=== PATIENT | female | born 1950 | race Caucasian/White ===

== ENCOUNTER 2019-01-07 10:10 | Observation (INO) | payer OTHER ==
[2019-01-07 10:23] VITALS: BMI 26.6
[2019-01-07 11:34] LABS: EOS % 0.7 % (0-4.5); HEMATOCRIT 40.1 % (32.4-45.2); HEMOGLOBIN 13.8 GM/dL (10.7-15.3); LYMPH % 31.4 % (8-40); MCH 33.2 pg (25.7-33.7); MCHC 34.4 g/dl (32.0-36.0); MEAN CELL VOLUME 96.6 fl (80-96); MEAN PLT VOLUME 6.8 fl (7.5-11.1); NEUT % 58.9 % (42.8-82.8); PLATELET COUNT 284 K/MM3 (134-434); RBC 4.15 M/mm3 (3.60-5.2); RDW 13.4 % (11.6-15.6); WHITE BLOOD COUNT 5.5 K/mm3 (4.0-10.0)
--- NOTE | 2019-01-07 11:43 | PDOC ---
History of Present Illness - General Chief Complaint: Syncope/Near Syncope Stated Complaint: SYNCOPE Time Seen by Provider: 01/07/19 10:46 History Source: Patient, Family Exam Limitations: No Limitations - History of Present Illness Initial Comments: 01/07/19 11:31 The patient is a 68F with a PMH of HTN and HLD who presents to the ER with complaints of dizziness. The patient states that 1 month ago, she developed room -spinning dizziness associated with SOB, nausea, dipolopia, and b/l tinnitus. This "went away" and then came back 2 weeks ago, where it has been intermittent since then. She denies current sensation of spinning and denies syncope. She denies fever, chills, CP, numbness, tingling, weakness, changes in vision. Past History - Past Medical History Allergies/Adverse Reactions: Allergies Allergy/AdvReac Type Severity Reaction Status Date / Time No Known Drug Allergies Allergy Verified 01/07/19 10:23 Home Medications: Ambulatory Orders NK [No Known Home Medication] 01/07/19 Anemia: No Asthma: No Cancer: No (BLADDER CANCER-DENIES) Cardiac Disorders: No CVA: No COPD: No CHF: No Dementia: No Diabetes: No GI Disorders: No Disorders: Yes (PROLAPSED BLADDER-DENIES DROPPED BLADDER) HTN: No Hypercholesterolemia: No Liver Disease: No Seizures: No Thyroid Disease: No - Surgical History Abdominal Surgery: Yes (TL) Appendectomy: No Cardiac Surgery: No Cholecystectomy: No Lung Surgery: No Neurologic Surgery: No Orthopedic Surgery: No - Suicide/Smoking/Psychosocial Hx Smoking History: Never smoked Have you smoked in the past 12 months: No Information on smoking cessation initiated: No Hx Alcohol Use: No Drug/Substance Use Hx: No Substance Use Type: None Hx Substance Use Treatment: No Review of Systems - Review of Systems Able to Perform ROS?: Yes Comments:: 01/07/19 11:47 GENERAL/CONSTITUTIONAL: No fever or chills. No weakness. HEAD, EYES, EARS, NOSE AND THROAT: No change in vision. No ear pain or discharge. No sore throat. CARDIOVASCULAR: No chest pain, palpitations, or lightheadedness. RESPIRATORY: Positive for SOB. No cough, wheezing, or hemoptysis. GASTROINTESTINAL: No nausea, vomiting, diarrhea, constipation, or abdominal pain. GENITOURINARY: No dysuria, frequency, hematuria, or change in urination. MUSCULOSKELETAL: No joint or muscle swelling or pain. No neck or back pain. SKIN: No rash or lesions. NEUROLOGIC: Positive for vertiginous dizziness. No headache, numbness, tingling , focal weakness, loss of consciousness, or change in strength/sensation. Is the patient limited [place] proficient: No *Physical Exam - Vital Signs Last Vital Signs Temp Pulse Resp BP Pulse Ox 98.8 F 56 L 16 130/69 100 01/07/19 10:10 01/07/19 10:10 01/07/19 10:10 01/07/19 10:10 01/07/19 10:10 - Physical Exam Comments: 01/07/19 12:02 GENERAL: Well developed, well nourished. Awake and alert. No acute distress. HEENT: Normocephalic, atraumatic. Hearing grossly normal. Moist mucous membranes. PERRLA, EOMI. No conjunctival pallor. NECK: Supple. Full ROM. No JVD. CARDIOVASCULAR: Regular rate and rhythm. No murmurs, rubs, or gallops. Distal pulses are 2+ and symmetric. PULMONARY: No evidence of respiratory distress. Lungs clear to auscultation bilaterally. No wheezing, rales or rhonchi. ABDOMINAL: Soft. Non-tender. Non-distended. No rebound or guarding. GENITOURINARY: No CVA tenderness bilaterally. MUSCULOSKELETAL: Normal range of motion at all joints. No bony deformities or tenderness. EXTREMITIES: No cyanosis. No clubbing. No edema. No calf tenderness or swelling. SKIN: Warm and dry. Normal capillary refill. No rashes. No jaundice. NEUROLOGICAL: Alert, awake, appropriate. Cranial nerves 2-12 intact. Normal speech. Gait is normal without ataxia. PSYCHIATRIC: Cooperative. Good eye contact. Appropriate mood and affect. Moderate Sedation - Procedure Monitoring Vital Signs: Procedure Monitoring Vital Signs Temperature 98.8 F 01/07/19 10:10 Pulse Rate 56 L 01/07/19 10:10 Respiratory Rate 16 01/07/19 10:10 Blood Pressure 130/69 01/07/19 10:10 O2 Sat by Pulse Oximetry (%) 100 01/07/19 10:10 ED Treatment Course - LABORATORY CBC & Chemistry Diagram: 01/07/19 11:12 01/07/19 11:12 - RADIOLOGY Radiology Studies Ordered: Category Date Time Status ABDOMEN & PELVIS CT WITH CONTR [CT] Stat CT Scan 01/07/19 11:11 Ordered CHEST X-RAY PORTABLE* [RAD] Stat Radiology 01/07/19 11:12 Ordered Medical Decision Making - Medical Decision Making 01/07/19 13:20 The patient is a 68F with a PMH of HTN, HLD who presents to the ER with 2 weeks of worsening vertiginous dizziness, concerning for intracranial process, vestibular stroke, or endolymph pathology. CBC, CMP WNL. CXR negative. CTH pending. 01/07/19 14:24 CTH and CTAP negative for acute pathology. CBC, CMP WNL. Pending urine. Troponin negative. 01/07/19 14:30 Neurology, corie Lopes for recs. 01/07/19 14:39 Attending d/w Dr. Carty who agrees with obs tele for MRI to evaluate for possible neuroma/other cause of vertiginous dizziness. Dr. Bernardo fontenot for admission. 01/07/19 15:[address] Moon for admission. *DC/Admit/Observation/Transfer Diagnosis at time of Disposition: Near syncope, Vertigo - Discharge Dispostion Condition at time of disposition: Guarded Decision to Admit order: Yes - Referrals Referrals: Britney Erwin [Primary Care Provider] - - Patient Instructions - Post Discharge Activity
--- NOTE | 2019-01-07 11:58 | PDOC ---
Attending Attestation - HPI HPI: 01/07/19 12:03 The patient is a 68-year-old female, with a past medical history of bladder ca, who presents to the ED with 2 weeks of dizziness. Patient describes the dizziness as the room spinning and states that it is accompanied by shortness of breath, bilateral ear ringing, double vision, and nausea. She reports experiencing similar symptoms 1 month ago, but states they resolved on their own. The patient denies any fevers, chills, vomiting, diarrhea, or abdominal pain. Denies any chest pain or palpitations. Denies any headache. Allergies: NKDA Social History: None Reported. Surgical History: None Reported. <Iliana Yeung - Last Filed: 01/07/19 12:03> - Resident Resident Name: Norm Davis - ED Attending Attestation I have performed the following: I have examined & evaluated the patient, The case was reviewed & discussed with the resident, I agree w/resident's findings & plan, Exceptions are as noted - Physicial Exam PE: 01/07/19 11:54 awake alert NAD TM clear bilaterally. lungs clear bilaterally heart rrr no mrg abd soft suprapubic ttp. no rebound no guaurding. legs no edema. skin warm dry no rash. finger to nose normal. 5/5 all four ext. EOMI CN II - XII intact. - Medical Decision Making 01/07/19 11:56 differential intracranial mass, near syncope. anemia, infection such as uti or pna, gastrtis, pancreatitis. plan labs lipase urinalysis, ct head. ekg and cardiac workup. 01/07/19 14:40 pt labs unremarkable. urinalysis pending. due to indolent course vertgio pt warrants mri. d/w dr chin, recommend lasix one time dose to r/o enolymphatic hydrops. <Linda Leonard - Last Filed: 01/07/19 14:41> Heart Score/ECG Review #1 ECG reviewed & interpreted by me at: 10:28 General ECG Interpretation: Sinus Rhythm, Normal Rate (55), Normal Intervals, No acute ischemic changes <Linda Leonard - Last Filed: 01/07/19 14:41> Attestations - Attestations 01/07/19 12:04 Documentation prepared by Iliana Yeung, acting as medical billing assistant for Linda Leonard MD. <Iliana Yeung - Last Filed: 01/07/19 12:03>
[2019-01-07 12:06] LABS: ALK PHOS 59 U/L (45-117); ANION GAP 7 MMOL/L (8-16); BILIRUBIN,TOTAL 0.6 mg/dL (0.2-1); BLOOD UREA NITROGEN 9 mg/dL (7-18); CALCIUM 8.7 mg/dL (8.5-10.1); CHLORIDE 104 mmol/L (98-107); CO2 25 mmol/L (21-32); CREATININE 0.6 mg/dL (0.55-1.3); GLUCOSE,RANDOM 96 mg/dL (74-106); LIPASE 192 U/L (73-393); POTASSIUM 4.6 mmol/L (3.5-5.1); SGOT/AST 18 U/L (15-37); SGPT/ALT 24 U/L (13-61); SODIUM 136 mmol/L (136-145); TOT PROT 7.5 g/dl (6.4-8.2)
[2019-01-07] MEDS ORDERED: MECLIZINE HCL 25 MG TABLET (FP) PO ONE (14:25)
[2019-01-07 14:48] LABS: URINE APPEARANCE CLEAR; URINE BILIRUBIN NEGATIVE (<2.0 mg/dL); URINE COLOR LTYELLOW; URINE GLUCOSE (UA) NEGATIVE (NEGATIVE); URINE KETONE TRACE (NEGATIVE); URINE LEUK ESTERASE 1+ (NEGATIVE); URINE NITRITE NEGATIVE (NEGATIVE); URINE PROTEIN NEGATIVE (NEGATIVE); URINE UROBILINOGEN NEGATIVE mg/dL (0.2-1.0)
[2019-01-07] MEDS ORDERED: MECLIZINE HCL 25 MG TABLET (FP) ONE (15:13)
[2019-01-07] MEDS ORDERED: MECLIZINE HCL 25 MG TABLET (FP) PO PRN (16:22)
[2019-01-07] MEDS ORDERED: ACETAMINOPHEN 325 MG TABLET (FP) PO PRN (16:25)
--- NOTE | 2019-01-07 16:25 | HP ---
Admitting History and Physical - Admission Chief Complaint: came in for dizziness History of Present Illness: The patient is a 68-year-old female, with a past medical history of bladder ca, who presents to the ED with 2 weeks of dizziness. Patient describes the dizziness as the room spinning and states that it is accompanied by shortness of breath, bilateral ear ringing, double vision, and nausea. She reports experiencing similar symptoms 1 month ago, but states they resolved on their own. History Source: Patient - Past Medical History Heme/Onc: Yes: Other (bladder cancer) - Smoking History Smoking history: Never smoked Have you smoked in the past 12 months: No - Alcohol/Substance Use Hx Alcohol Use: No Home Medications - Allergies Allergies/Adverse Reactions: Allergies Allergy/AdvReac Type Severity Reaction Status Date / Time No Known Drug Allergies Allergy Verified 01/07/19 10:23 - Home Medications Home Medications: Ambulatory Orders NK [No Known Home Medication] 01/07/19 Review of Systems - Review of Systems HENT: reports: Ringing in Ears Neck: reports: No Symptoms Cardiovascular: reports: No Symptoms Respiratory: reports: No Symptoms Physical Examination Vital Signs: Vital Signs Temperature 98.8 F 01/07/19 10:10 Pulse Rate 56 L 01/07/19 10:10 Respiratory Rate 16 01/07/19 10:10 Blood Pressure 130/69 01/07/19 10:10 O2 Sat by Pulse Oximetry (%) 100 01/07/19 10:10 Constitutional: Yes: Calm Cardiovascular: Yes: Regular Rate and Rhythm, S1, S2 Respiratory: Yes: CTA Bilaterally Gastrointestinal: Yes: Normal Bowel Sounds, Soft Edema: No Neurological: Yes: Alert, Oriented Labs: CBC, BMP 01/07/19 11:12 01/07/19 11:12 Problem List - Problems (1) Vertigo Assessment/Plan: neurology meclizine prn mri brain ent consult PT eval dvt ppx check ua, urine culture Code(s): R42 - DIZZINESS AND GIDDINESS
[2019-01-07 16:59] LABS: EPI CELLS RARE /HPF (FEW); URINE MUCUS RARE
--- NOTE | 2019-01-07 20:42 | CON.NEURO ---
Consult Consult Specialty:: NEUROLOGY-[facility] Reason for Consultation:: Dizziness - History of Present Illness History of Present Illness: The patient is a 68-year-old female, with a past medical history of bladder ca, who presents to the ED with 2 weeks of dizziness. Patient describes the dizziness as the room spinning and states that it is accompanied by shortness of breath, bilateral ear ringing, double vision, and nausea. She reports experiencing similar symptoms 1 month ago, but states they resolved on their own. Tonight reports she feels better, has no dizziness/vertigo. Denies all neurologic symptoms at this time. CT Head-mod. volume loss only The patient denies any fevers, chills, vomiting, diarrhea, or abdominal pain. Denies any chest pain or palpitations. Denies any headache. - Alcohol/Substance Use Hx Alcohol Use: No - Smoking History Smoking history: Never smoked Have you smoked in the past 12 months: No Home Medications - Allergies Allergies/Adverse Reactions: Allergies Allergy/AdvReac Type Severity Reaction Status Date / Time No Known Drug Allergies Allergy Verified 01/07/19 10:23 - Home Medications Home Medications: Ambulatory Orders NK [No Known Home Medication] 01/07/19 Physical Exam-Neuro Vital Signs: Vital Signs Temperature 98.8 F 01/07/19 10:10 Pulse Rate 60 01/07/19 17:09 Respiratory Rate 18 01/07/19 17:09 Blood Pressure 112/62 01/07/19 17:09 O2 Sat by Pulse Oximetry (%) 98 01/07/19 17:09 Labs: CBC, BMP 01/07/19 11:12 01/07/19 11:12 - Neuro Exam Level Of Consciousness: Yes: Alert, Oriented to Person, Oriented to Place Eyes: Yes: ROSSI Speech: WNL Mini Mental Exam: Intact DTR's: 1+ Left Achilles, 1+ Right Achilles, 2+ Left Bicep, 2+ Right Bicep, 2+ Left Tricep, 2+ Right Tricep, 2+ Left Brachioradialis, 2+ Right Brachioradialis Motor Strength: 5/5: Left Arm, Right Arm, Left Leg, Right Leg Assessment/Plan pt. with recurrent vertigo, now resolved?/ resolved after receiving Lasix. 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 Suggest: await MRI brain report, if without abn. can place on Depakote 250mg hs(it can suppress inner ear reflexes resulting in relief of peripheral vertigo. Thank you, Lalo Carty MD
[2019-01-07] MEDS ORDERED: HEPARIN NA (PORCINE) 5,000 UNITS/ML 1ML VIAL ONE (21:31)
[2019-01-07] MEDS ORDERED: HEPARIN NA (PORCINE) 5,000 UNITS/ML 1ML VIAL SQ SCH (22:00)
[2019-01-08 06:42] LABS: HEMATOCRIT 37.4 % (32.4-45.2); HEMOGLOBIN 12.8 GM/dL (10.7-15.3); MCH 32.8 pg (25.7-33.7); MCHC 34.3 g/dl (32.0-36.0); MEAN CELL VOLUME 95.7 fl (80-96); MEAN PLT VOLUME 6.7 fl (7.5-11.1); PLATELET COUNT 262 K/MM3 (134-434); RBC 3.91 M/mm3 (3.60-5.2); RDW 13.3 % (11.6-15.6); WHITE BLOOD COUNT 4.4 K/mm3 (4.0-10.0)
[2019-01-08 07:27] LABS: ALBUMIN 3.5 g/dl (3.4-5.0); ALK PHOS 55 U/L (45-117); ANION GAP 6 MMOL/L (8-16); BILIRUBIN,TOTAL 0.4 mg/dL (0.2-1); BLOOD UREA NITROGEN 16 mg/dL (7-18); CALCIUM 8.2 mg/dL (8.5-10.1); CHLORIDE 106 mmol/L (98-107); CO2 26 mmol/L (21-32); CREATININE 0.6 mg/dL (0.55-1.3); GLUCOSE,RANDOM 95 mg/dL (74-106); MAGNESIUM 2.4 mg/dL (1.8-2.4); N-TERMINAL BNP 33.4 pg/ml (5-125); PHOSPHOROUS 4.6 mg/dL (2.5-4.9); POTASSIUM 4.5 mmol/L (3.5-5.1); SGOT/AST 13 U/L (15-37); SGPT/ALT 18 U/L (13-61); SODIUM 137 mmol/L (136-145); TOT PROT 6.8 g/dl (6.4-8.2)
[2019-01-08 08:20] VITALS: BP 123/64; PULSE 60; TEMP 97.8
--- NOTE | 2019-01-08 08:40 | DS ---
Physical Examination Vital Signs: Vital Signs Temperature 97.8 F 01/08/19 07:10 Pulse Rate 60 01/08/19 07:10 Respiratory Rate 16 01/08/19 07:10 Blood Pressure 123/64 01/08/19 07:10 O2 Sat by Pulse Oximetry (%) 98 01/08/19 07:10 Findings/Remarks: no complaints fells well ambulating in er Cardiovascular: Yes: Regular Rate and Rhythm Respiratory: Yes: Regular, CTA Bilaterally Gastrointestinal: Yes: Normal Bowel Sounds, Soft. No: Tenderness Labs: CBC, BMP 01/08/19 05:30 01/08/19 05:30 Discharge Summary Reason For Visit: DIZZINESS Current Active Problems Near syncope (Acute) Vertigo (Acute) Hospital Course: he patient is a 68-year-old female, with a past medical history of bladder ca, who presents to the ED with 2 weeks of dizziness. Patient describes the dizziness as the room spinning and states that it is accompanied by shortness of breath, bilateral ear ringing, double vision, and nausea. She reports experiencing similar symptoms 1 month ago, but states they resolved on their own. Tonight reports she feels better, has no dizziness/vertigo. Denies all neurologic symptoms at this time. CT Head-mod. volume loss only The patient denies any fevers, chills, vomiting, diarrhea, or abdominal pain. Denies any chest pain or palpitations. Denies any headache. Laboratory Tests 01/07/19 01/07/19 01/07/19 11:12 11:12 14:12 WBC 5.5 RBC 4.15 Hgb 13.8 Hct 40.1 D MCV 96.6 H MCH 33.2 MCHC 34.4 RDW 13.4 Plt Count 284 D MPV 6.8 L Absolute Neuts (auto) 3.3 Neutrophils % 58.9 Lymphocytes % 31.4 D Monocytes % 8.0 Eosinophils % 0.7 Basophils % 1.0 Nucleated RBC % 0 Sodium 136 Potassium 4.6 Chloride 104 Carbon Dioxide 25 Anion Gap 7 L BUN 9 Creatinine 0.6 Creat Clearance w eGFR > 60 Random Glucose 96 Calcium 8.7 Phosphorus Magnesium Total Bilirubin 0.6 AST 18 ALT 24 Alkaline Phosphatase 59 Creatine Kinase 56 Troponin I < 0.02 B-Natriuretic Peptide Total Protein 7.5 Albumin 4.0 Lipase 192 Urine Color Ltyellow Urine Appearance Clear Urine pH 7.0 Ur Specific [place] 1.028 Urine Protein Negative Urine Glucose (UA) Negative Urine Ketones Trace H Urine Blood Negative Urine Nitrite Negative Urine Bilirubin Negative Urine Urobilinogen Negative Ur Leukocyte Esterase 1+ H Urine WBC (Auto) 3 Urine RBC (Auto) 1 Ur Epithelial Cells Rare Urine Mucus Rare 01/08/19 01/08/19 05:30 05:30 WBC 4.4 RBC 3.91 Hgb 12.8 Hct 37.4 MCV 95.7 MCH 32.8 MCHC 34.3 RDW 13.3 Plt Count 262 MPV 6.7 L Absolute Neuts (auto) Neutrophils % Lymphocytes % Monocytes % Eosinophils % Basophils % Nucleated RBC % Sodium 137 Potassium 4.5 Chloride 106 Carbon Dioxide 26 Anion Gap 6 L BUN 16 Creatinine 0.6 Creat Clearance w eGFR > 60 Random Glucose 95 Calcium 8.2 L Phosphorus 4.6 Magnesium 2.4 Total Bilirubin 0.4 AST 13 L ALT 18 Alkaline Phosphatase 55 Creatine Kinase Troponin I B-Natriuretic Peptide 33.4 Total Protein 6.8 Albumin 3.5 Lipase Urine Color Urine Appearance Urine pH Ur Specific [place] Urine Protein Urine Glucose (UA) Urine Ketones Urine Blood Urine Nitrite Urine Bilirubin Urine Urobilinogen Ur Leukocyte Esterase Urine WBC (Auto) Urine RBC (Auto) Ur Epithelial Cells Urine Mucus - Problems (1) Vertigo Assessment/Plan: neurology meclizine prn mri brain nad Neuro consult Assessment/Plan pt. with recurrent vertigo, now resolved?/ resolved after receiving Lasix. 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 Suggest: await MRI brain report, if without abn. can place on Depakote 250mg hs(it can suppress inner ear reflexes resulting in relief of peripheral vertigo. Lalo Carty MD dvt ppx Code(s): R42 - DIZZINESS AND GIDDINESS Condition: Improved - Instructions Referrals: Britney Erwin [Primary Care Provider] - 1 Week - Home Medications Comprehensive Discharge Medication List: Ambulatory Orders Acetaminophen [Tylenol .Regular Strength -] 650 mg PO Q6H PRN tablet 01/08/19 Meclizine HCl [Antivert -] 25 mg PO Q8H PRN #60 tablet 01/08/19
--- NOTE | 2019-01-08 10:44 | EKG ---
Test Reason : Blood Pressure : / mmHG Vent. Rate : 066 BPM Atrial Rate : 066 BPM P-R Int : 168 ms QRS Dur : 080 ms QT Int : 404 ms P-R-T Axes : 070 040 070 degrees QTc Int : 423 ms NORMAL SINUS RHYTHM POSSIBLE LEFT ATRIAL ENLARGEMENT BORDERLINE ECG WHEN COMPARED WITH ECG OF 07-JAN-2019 10:28, NO SIGNIFICANT CHANGE WAS FOUND Confirmed by YONATHAN BATEMAN, SUZANNE ([id number]) on 01/08/2019 10:43:45 AM Referred By: Confirmed By:SUZANNE MCMANUS MD
== END 2019-01-08 09:37 | disposition home or self-care (01) ==
LOC: JER 10:10 → JERBED 14:35
PROVIDERS: ADMIT Student in an Organized Health Care Education/Training Program; ATTEND Student in an Organized Health Care Education/Training Program
DX: R42 Dizziness and giddiness (principal); Z85.51 Personal history of malignant neoplasm of bladder
CPT/HCPCS: 36415; 70450-TC; 70551-TC; 71045-TC-FY; 74177-TC; 80053; 81003; 81015; 82550; 83690; 83735; 83880; 84100; 84484; 85025; 85027; 87086; 93005; 93010; 99285-25; G0378

== ENCOUNTER 2025-02-09 15:27 | Observation (INO) | payer OTHER ==
[2025-02-09 15:39] VITALS: BMI 16.8
[2025-02-09] MEDS ORDERED: FAMOTIDINE 20 MG/50 ML IVPB 20 MG/50 ML MG IVPB ONE (17:11)
[2025-02-09] MEDS ORDERED: ONDANSETRON 4 MG/2 ML VIAL ONE (17:11)
[2025-02-09] MEDS: ONDANSETRON 4 MG/2 ML VIAL IVPUSH ONE (17:24)
[2025-02-09] MEDS: SODIUM CHLORIDE 1,000 ML IV STA (17:24)
[2025-02-09] MEDS: FAMOTIDINE 20 MG/50 ML IVPB 20 MG/50 ML MG IVPB ONE (17:25)
[2025-02-09 17:28] LABS: VENOUS BASE EXCESS -0.6 mmol/L (-2-2); VENOUS PCO2 27.6 mmHg (38-52); VENOUS PH 7.506 (7.310-7.410)
[2025-02-09 17:32] LABS: ABSOLUTE IMMATURE GRANULOCYTES 0.01 x10^3/uL (0.0-0.031); BASOPHILS # 0.02 x10^3/uL (0.01-0.08); EOSINOPHIL % 0.6 % (0.7-5.8); EOSINOPHILS # 0.03 x10^3/uL (0.04-0.36); HEMATOCRIT 36.8 % (34.1-44.9); MCHC 32.6 g/dl (32.2-35.5); MEAN CELL VOLUME 91.3 fl (79.4-94.8); MEAN PLT VOLUME 9.1 fl (9.4-12.3); MONOCYTE % 5.8 % (4.7-12.5); PLATELET COUNT 260 x10^3/uL (182-369); RDW 13.8 % (12.4-16.6)
[2025-02-09 17:50] LABS: POTASSIUM 3.6 mmol/L (3.5-5.1)
[2025-02-09 17:52] LABS: CALCIUM 9.2 mg/dL (8.5-10.1)
[2025-02-09 17:53] LABS: ALBUMIN 3.8 g/dl (3.4-5.0); BLOOD UREA NITROGEN 9.8 mg/dL (7-18); MAGNESIUM 2.2 mg/dL (1.8-2.4)
[2025-02-09 17:56] LABS: CREATININE 0.6 mg/dL (0.55-1.3)
[2025-02-09 17:58] LABS: BILIRUBIN,TOTAL 0.8 mg/dL (0.2-1); TOT PROT 7.4 g/dl (6.4-8.2)
[2025-02-09 18:46] LABS: HCV DIAGNOSTIC IN-HOUSE W/RFLX NON-REACTIVE (NONREACTIVE); HIV INTERPRETATION NEGATIVE (NEGATIVE)
[2025-02-09 19:18] LABS: INR 1.24 (0.83-1.09); PROTHROMBIN TIME (PATIENT) 13.5 SEC (9.7-13.0)
[2025-02-09 19:21] LABS: ACTIVATED PTT 28.7 SECONDS (25.2-36.5)
[2025-02-09 19:40] LABS: EPI CELLS 3 /uL (0-25.1); HYALINE CASTS 0 /uL (0-3.1); URINE APPEARANCE CLEAR; URINE BACTERIA 2067 /uL (0-1359); URINE BILIRUBIN NEGATIVE (NEGATIVE); URINE COLOR YELLOW; URINE GLUCOSE (UA) NEGATIVE (NEGATIVE); URINE KETONE 1+ (NEGATIVE); URINE LEUK ESTERASE 2+ (NEGATIVE); URINE NITRITE NEGATIVE (NEGATIVE); URINE PROTEIN NEGATIVE (NEGATIVE); URINE RBC 11 /uL (0-23.9); URINE UROBILINOGEN 0.2 mg/dL (0.2-1.0); URINE WBC 183 /uL (0-25.8)
[2025-02-09] MEDS ORDERED: ACETAMINOPHEN INJECTION 100 ML ONE (19:58)
[2025-02-09] MEDS: ACETAMINOPHEN 1000 MG/100 ML BAG IVPB ONE (20:01)
[2025-02-09] MEDS ORDERED: METOCLOPRAMIDE HCL INJECTION 10 MG/2 ML VIAL IVPUSH PRN (20:26)
[2025-02-10] MEDS: MELATONIN 5 MG TABLETS PO PRN (00:36)
[2025-02-10 06:56] LABS: ABSOLUTE IMMATURE GRANULOCYTES 0.01 x10^3/uL (0.0-0.031); BASOPHILS # 0.02 x10^3/uL (0.01-0.08); EOSINOPHILS # 0.09 x10^3/uL (0.04-0.36); HEMATOCRIT 35.6 % (34.1-44.9); HEMOGLOBIN 11.3 g/dL (11.2-15.7); MCHC 31.7 g/dl (32.2-35.5); MEAN CELL VOLUME 92.5 fl (79.4-94.8); MONOCYTE # 0.41 x10^3/uL (0.24-0.86); MONOCYTE % 8.9 % (4.7-12.5); PLATELET COUNT 240 x10^3/uL (182-369)
[2025-02-10 07:14] LABS: POTASSIUM 3.9 mmol/L (3.5-5.1)
[2025-02-10 07:19] LABS: BLOOD UREA NITROGEN 10.4 mg/dL (7-18); CALCIUM 8.5 mg/dL (8.5-10.1)
[2025-02-10 07:22] LABS: CREATININE 0.6 mg/dL (0.55-1.3); PHOSPHOROUS 4.2 mg/dL (2.5-4.9)
[2025-02-10] MEDS: CEFTRIAXONE 1 G/50 ML PREMIX 50 ML IVPB SCH (16:43)
[2025-02-10] MEDS: PANTOPRAZOLE 40 MG TABLET PO SCH (17:52)
[2025-02-10] MEDS: DOCUSATE SODIUM 100 MG CAPSULE (FP) PO PRN (22:44)
[2025-02-11 07:58] LABS: ABSOLUTE IMMATURE GRANULOCYTES 0.01 x10^3/uL (0.0-0.031); BASOPHILS # 0.02 x10^3/uL (0.01-0.08); EOSINOPHIL % 2.1 % (0.7-5.8); EOSINOPHILS # 0.09 x10^3/uL (0.04-0.36); HEMOGLOBIN 11.4 g/dL (11.2-15.7); MCHC 31.7 g/dl (32.2-35.5); MEAN CELL VOLUME 93.5 fl (79.4-94.8); MEAN PLT VOLUME 9.2 fl (9.4-12.3); MONOCYTE # 0.35 x10^3/uL (0.24-0.86); PLATELET COUNT 246 x10^3/uL (182-369); RDW 14.1 % (12.4-16.6)
[2025-02-11 08:18] LABS: POTASSIUM 3.7 mmol/L (3.5-5.1)
[2025-02-11 08:55] LABS: ALBUMIN 3.4 g/dl (3.4-5.0); CALCIUM 8.5 mg/dL (8.5-10.1)
[2025-02-11 08:57] LABS: BLOOD UREA NITROGEN 8.1 mg/dL (7-18)
[2025-02-11 08:59] LABS: CREATININE 0.5 mg/dL (0.55-1.3)
[2025-02-11 09:00] LABS: BILIRUBIN,TOTAL 0.4 mg/dL (0.2-1); TOT PROT 6.4 g/dl (6.4-8.2)
[2025-02-11] MEDS: MECLIZINE HCL 25 MG TABLET (FP) PO PRN (12:29)
[2025-02-11] MEDS: CLOPIDOGREL BISULFATE 75 MG TABLET (FP) PO SCH (15:50)
[2025-02-11] MEDS: ASPIRIN COATED 81 MG TABLET.EC PO SCH (15:50)
[2025-02-11] MEDS: PIPERACILLIN/TAZOB 3.375 GM 50 ML IVPB SCH (17:37)
[2025-02-11] MEDS: SIMETHICONE 80 MG TAB.CHEW (FP) PO ONE (21:47)
[2025-02-11] MEDS: ACETAMINOPHEN 325 MG TABLET (FP) PO PRN (21:47)
[2025-02-13] MEDS: SIMETHICONE 80 MG TAB.CHEW (FP) PO PRN (17:19)
[2025-02-14 11:15] VITALS: BP 139/52; PULSE 72; RESP 17; TEMP 97.9
== END 2025-02-14 15:26 | disposition home or self-care (01) ==
LOC: JER 15:27 → JERBED 19:32 → J4S 21:51
PROVIDERS: ADMIT Internal Medicine; ATTEND Internal Medicine
PROC: 3E03329 Introduction of Other Anti-infective into Peripheral Vein, Percutaneous Approach (ICD-10-PCS; principal; 2025-02-09)
PROC: 3E033NZ Introduction of Analgesics, Hypnotics, Sedatives into Peripheral Vein, Percutaneous Approach (ICD-10-PCS; 2025-02-09)
PROC: 3E033GC Introduction of Other Therapeutic Substance into Peripheral Vein, Percutaneous Approach (ICD-10-PCS; 2025-02-09)
PROC: 3E03329 Introduction of Other Anti-infective into Peripheral Vein, Percutaneous Approach (ICD-10-PCS; 2025-02-09)
PROC: 3E0337Z Introduction of Electrolytic and Water Balance Substance into Peripheral Vein, Percutaneous Approach (ICD-10-PCS; 2025-02-09)
DX: N39.0 Urinary tract infection, site not specified (principal); E78.5 Hyperlipidemia, unspecified; K20.80 Other esophagitis without bleeding; N81.4 Uterovaginal prolapse, unspecified; I65.21 Occlusion and stenosis of right carotid artery; K21.9 Gastro-esophageal reflux disease without esophagitis; K83.8 Other specified diseases of biliary tract; K59.09 Other constipation; I66.9 Occlusion and stenosis of unspecified cerebral artery; Z90.49 Acquired absence of other specified parts of digestive tract; Z86.73 Personal history of transient ischemic attack (TIA), and cerebral infarction without residual deficits; Z90.79 Acquired absence of other genital organ(s); R41.3 Other amnesia; R42 Dizziness and giddiness
CPT/HCPCS: 36415; 70450-TC; 71045-TC-FY; 74177-TC; 74220-TC-FY; 80048; 80053; 80061; 81003; 82140; 82607; 82746; 82803; 82962; 83036; 83605; 83690; 83735; 83880; 84100; 84439; 84443; 84484; 85025; 85610; 85730; 86803; 86850; 86900; 86901; 87086; 87186; 87389; 93005; 93010; 93306-TC; 93880-TC; 96361; 96365; 96367; 96375; 99285-25; G0378; J0131; Q9967